=== PATIENT | female | born 1940 | race Caucasian/White ===

== ENCOUNTER 2017-04-01 15:59 | Emergency (ER) | payer MEDICARE, BC ==
[2017-04-01 16:05] VITALS: BMI 28.6
[2017-04-01] MEDS ORDERED: Morphine 4 mg/ml ISec IVP STA (16:05)
--- NOTE | 2017-04-01 16:09 | ED PDOC ---
Arrival/HPI - General Chief Complaint: Upper Extremity Problem/Injury Time Seen by Provider: 04/01/17 16:03 Historian: Patient, EMS, Police - History of Present Illness Time/Duration: Prior to Arrival Symptom Onset: Sudden Symptom Course: Unchanged Severity Level: Severe Associated Symptoms (Text): 04/01/17 16:06 Patient reports that just prior to arrival she tripped on her grandchild's toy injuring her dominant right shoulder. There was no other injury or trauma. She ate approximately 3 hours ago. There is a shoulder deformity. Past Medical History - Cardiac Hx Pacemaker: No - Neurological Hx Paralysis: No - Hematological/Oncological Hx Blood Transfusions: No Hx Blood Transfusion Reaction: No - Musculoskeletal/Rheumatological Hx Musculoskeletal Disorders: No - Psychiatric Hx Emotional Abuse: No Hx Physical Abuse: No - Anesthesia Hx Anesthesia Reactions: No Hx Malignant Hyperthermia: No - Suicidal Assessment Feels Threatened In Home Enviroment: No Family/Social History - Physician Review Nursing Documentation Reviewed: Yes Family/Social History: Unknown Family HX Smoking Status: Never Smoked Hx Alcohol Use: Yes Frequency of alcohol use: Socially Hx Substance Use: No Allergies/Home Meds Allergies/Adverse Reactions: Allergies No Known Allergies Allergy (Verified 04/01/17 16:33) Home Medications: Home Meds Medication Instructions Recorded Confirmed Levothyroxine Sodium 50 mcg PO DAILY 12/06/11 04/01/17 [Levothyroxine] Review of Systems - Physician Review All systems were reviewed & negative as marked: Yes - Review of Systems Cardiovascular: Normal Gastrointestinal: Normal Genitourinary Female: Normal Musculoskeletal: absent: Back Pain, Neck Pain Physical Exam Vital Signs Temp Pulse Resp BP Pulse Ox 04/01/17 18:00 88 24 168/92 H 97 04/01/17 17:30 98.1 F 66 30 H 160/98 H 98 04/01/17 17:18 69 33 H 182/85 H 94 L 04/01/17 17:10 67 28 H 156/73 H 94 L 04/01/17 17:09 73 17 156/83 H 91 L 04/01/17 17:08 84 31 H 171/86 H 98 04/01/17 17:05 77 33 H 171/86 H 97 04/01/17 17:00 88 24 159/82 H 96 04/01/17 16:08 97.5 F L 78 18 164/79 H 96 Temperature: Afebrile Blood Pressure: Normal Pulse: Regular Respiratory Rate: Normal Appearance: Positive for: Well-Appearing, Non-Toxic, Uncomfortable Pain Distress: Severe Mental Status: Positive for: Alert and Oriented X 3 - Systems Exam Head: Present: Atraumatic, Normocephalic Pupils: Present: PERRL Extroacular Muscles: Present: EOMI Conjunctiva: Present: Normal Mouth: Present: Moist Mucous Membranes Pharnyx: No: ERYTHEMA, EXUDATE, TONSILS ENLARGED Neck: Present: Normal Range of Motion. No: MIDLINE TENDERNESS, Paraspinal Tenderness Respiratory/Chest: Present: Clear to Auscultation, Good Air Exchange, Decreased Breath Sounds. No: Respiratory Distress, Accessory Muscle Use Cardiovascular: Present: Regular Rate and Rhythm, Normal S1, S2. No: Murmurs Abdomen: Present: Normal Bowel Sounds. No: Tenderness, Distention, Peritoneal Signs, Rebound, Guarding Upper Extremity: Present: NORMAL PULSES, Tenderness, Neurovascularly Intact, Deformity, Other (Right shoulder limited range of motion with a deformity. No skin changes. Palpable pulses. The elbow and wrist are normal.). No: Normal ROM , Swelling, Erythema Lower Extremity: Present: Normal Inspection. No: Edema Neurological: Present: GCS=15, CN II-XII Intact, Speech Normal, Motor Func Grossly Intact Skin: Present: Warm, Dry, Normal Color. No: Rashes Medical Decision Making ED Course and Treatment: 04/01/17 17:28 Right shoulder reduction. After obtaining signed informed consent the patient was placed on a monitor with an intravenous oxygen and capnography with a nurse and tech present and was given moderate sedation with etomidate 15 mg IV push. The right shoulder dislocation was then reduced by myself using a traction countertraction method. Patient tolerated the procedure well. Post reduction x- rays showed the shoulder in good position. A shoulder immobilizer was applied. Patient will be discharged home accompanied by family to follow up with orthopedist. Follow-up in the ER as needed. 04/01/17 18:38 Patient is awake alert cooperative and is not sedated. She is much more comfortable. Discharged home accompanied by family. - RAD Interpretation Radiology Orders: 04/01/17 16:05 SHOULDER RIGHT [RAD] Stat 04/01/17 17:16 SHOULDER RIGHT ONE VIEW (OR) [RAD] Stat - Medication Orders Current Medication Orders: Discontinued Medications Etomidate (Amidate) 20 mg IV STAT STA Stop: 04/01/17 17:09 Last Admin: 04/01/17 17:08 Dose: Not Given Non-Admin Reason: Patient Asleep Etomidate (Amidate) 15 mg IVP STAT STA Stop: 04/01/17 17:19 Last Admin: 04/01/17 17:08 Dose: 15 mg IVP Administration Document 04/01/17 17:08 [email or web address] (Rec: 04/01/17 17:37 [email or web address] [id number]) Charges for Administration # of IVP Administrations 1 Morphine Sulfate (Morphine) 4 mg IVP STAT STA Stop: 04/01/17 16:06 Last Admin: 04/01/17 16:15 Dose: 4 mg MAR Pain Assessment Document 04/01/17 16:15 OCS (Rec: 04/01/17 17:01 OCS [id number]) Pain Reassessment Is this a pain reassessment? Yes Sleep Is patient sleeping during reassessment? No Presence of Pain Presence of Pain Yes Pain Scale Used Pain Scale Used Numeric Location Left, Right or Bilateral Right Pain Location Body Site Shoulder Description Description Constant Intensity of Pain at present 10 Aggravating Factors ADL's IVP Administration Document 04/01/17 16:15 OCS (Rec: 04/01/17 17:01 OCS [id number]) Charges for Administration # of IVP Administrations 1 Ondansetron HCl (Zofran Inj) 4 mg IVP ONCE ONE Stop: 04/01/17 16:06 Last Admin: 04/01/17 16:15 Dose: 4 mg IVP Administration Document 04/01/17 16:15 OCS (Rec: 04/01/17 17:01 OCS [id number]) Charges for Administration # of IVP Administrations 1 Disposition/Present on Arrival - Present on Arrival Any Indicators Present on Arrival: No History of DVT/PE: No History of Uncontrolled Diabetes: No Urinary Catheter: No History of Decub. Ulcer: No - Disposition Have Diagnosis and Disposition been Completed?: Yes Diagnosis: Dislocation of right shoulder joint Disposition: HOME/ ROUTINE Disposition Time: 18:40 Patient Plan: Discharge Condition: IMPROVED Discharge Instructions (ExitCare): Shoulder Dislocation (ED), Moderate Sedation (ED) Additional Instructions: Rest and ice. Tylenol or Advil as directed on bottle as needed. Ultram for severe pain. Follow-up with orthopedist. Follow-up in the ER as needed. Prescriptions: Tramadol HCl [Ultram] 50 mg PO Q6 PRN #14 tab PRN Reason: Pain Referrals: Faheem WIGGINS,Albert Gonzalez MD [Primary Care Provider] - Follow up with primary Newton Amaya MD [Staff Provider] - Follow up with primary Forms: [employer] (Bengali)
--- NOTE | 2017-04-01 17:07 | RAD ---
PROCEDURE: Radiographs of the Right Shoulder HISTORY: trauma COMPARISON: No prior. FINDINGS: BONES: Small fracture fragments are seen adjacent to the greater tuberosity. There is anterior inferior dislocation of the humeral head JOINTS: Dislocation SOFT TISSUES: Normal. OTHER FINDINGS: None. IMPRESSION: Small fracture fragments are seen adjacent to the greater tuberosity. There is anterior inferior dislocation of the humeral head
[2017-04-01] MEDS ORDERED: Etomidate 20 mg/10ml Inj IV STA (17:08)
[2017-04-01] MEDS ORDERED: Etomidate 20 mg/10ml Inj IVP STA (17:18)
[2017-04-01 17:32] VITALS: TEMP 98.1
[2017-04-01 18:25] VITALS: O2SAT 97
[2017-04-01 19:03] VITALS: BP 133/86; PULSE 79; RESP 18
--- NOTE | 2017-04-02 08:23 | RAD ---
PROCEDURE: Right shoulder single-view HISTORY: post reduction COMPARISON: TECHNIQUE: Single view FINDINGS: There has been successful reduction of the anterior dislocation. The fracture fragment is not visible IMPRESSION: As above
== END 2017-04-01 19:08 | disposition home or self-care (01) ==
LOC: ED 15:59
DX: S43.014A Anterior dislocation of right humerus, initial encounter (principal); W18.09XA Striking against other object with subsequent fall, initial encounter
CPT/HCPCS: 23650; 73020; 73030; 96374; 96375; 99285; J2270; J2405; L3650